=== PATIENT | male | born 1960 | race Caucasian/White ===

== ENCOUNTER 2023-12-06 21:23 | Emergency (ER) | payer MEDICARE, OTHER, SELFPAY ==
[2023-12-06 21:30] VITALS: BP 169/82; PULSE 88; RESP 20; TEMP 36.9; O2SAT 97; BMI 27.2
[2023-12-06 22:04] LABS: Add Manual Diff / Slide Review NO; Basophils Absolute Auto 0 /uL (0-100); Basophils Percent Auto 0.2 % (0-2); Eosinophils Absolute Auto 0 /uL (0-450); Hematocrit 39.2 % (41-53); Hemoglobin 13.4 g/dL (13.5-17.5); Lymphocytes Absolute Auto 800 /uL (1100-4500); Lymphocytes Percent Auto 12.2 % (25-40); Mean Corpuscular HGB Conc 34.1 % (30-36); Mean Corpuscular Hemoglobin 29.1 PG (26-34); Mean Corpuscular Volume 85.2 fL (80-100); Monocytes Absolute Auto 500 /uL (0-900); Neutrophils Absolute Auto 5200 /uL (1500-7000); Neutrophils Percent Auto 79.6 % (50-75); Platelet Count 249 X10^3/uL (150-400); Red Cell Distribution Width 14.3 % (11.6-14.8); White Blood Cell Count 6.5 X10^3/uL (4.5-11.0)
[2023-12-06 22:17] LABS: Lactate (Lactic Acid) 0.8 mmol/L (0.7-2.1)
[2023-12-06 22:18] LABS: Alanine Aminotransferase 18 IU/L (<50); Albumin 4.5 g/dL (3.5-5.0); Albumin Globulin Ratio 1.4 (1.0-2.8); Alkaline Phosphatase 97 U/L (38-126); Aspartate Aminotransferase 25 IU/L (17-59); BUN Creatinine Ratio 15.2 (6-22); Bilirubin Total 0.7 mg/dL (0.2-1.3); Blood Urea Nitrogen 12 mg/dL (9-20); Calcium 9.2 mg/dL (8.4-10.2); Carbon Dioxide 23 mmol/L (22-32); Chloride 102 mmol/L (98-107); Estimated Glomerular Filt Rate > 60 mL/min (>60); Globulin 3.2 g/dL (1.7-4.1); Glucose 109 mg/dL (80-110); HEMOLYSIS 16 (0-50); Potassium 4.1 mmol/L (3.4-5.1); Sodium 135 mmol/L (137-145); Total Protein 7.7 g/dL (6.3-8.2)
[2023-12-06 22:35] LABS: Procalcitonin 0.308 ng/mL (<0.5)
[2023-12-06 23:58] VITALS: BP 118/73; PULSE 77; PULSE 80; RESP 18; TEMP 36.8; O2SAT 99
[2023-12-07] VITALS: BP 121/66; PULSE 75; O2SAT 95
--- NOTE | 2023-12-07 00:11 | DI.CT.S_ITS ---
PROCEDURE: CT HEAD/BRAIN WO CON INDICATIONS: AMS, SEVERE MEMORY ISSUES TECHNIQUE: Noncontrast 4.5 mm thick angled axial sections acquired from the foramen magnum to the vertex, with coronal and sagittal reformats. For radiation dose reduction, the following was used: automated exposure control, adjustment of mA and/or kV according to patient size. COMPARISON: None. FINDINGS: Image quality: Diagnostic CSF spaces: Basal cisterns are patent. Lateral ventricles are symmetric. Volume: Vascular calcifications. Periventricular white matter disease is commonly seen with chronic microangiopathy. Volume loss is present. These findings are [id number] Brain: No intracranial hemorrhage. Ordaz-white differentiation is grossly maintained. Craniofacial structures: Mucosal thickening and mucous cysts seen in the paranasal sinuses. IMPRESSION: No acute intracranial pathology. If there is high concern for parenchymal pathology, consider further evaluation with MRI. Dictated by: Joey Huang M.D. on 12/07/2023 at 0:49 Approved by: Joey Huang M.D. on 12/07/2023 at 0:50
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
[2023-12-07 00:30] VITALS: BP 133/71; PULSE 70; O2SAT 97
[2023-12-07 00:40] LABS: Magnesium 1.6 mg/dL (1.6-2.3)
[2023-12-07 00:51] LABS: Ammonia (NH3) < 9 umol/L (9-30)
[2023-12-07 00:54] VITALS: BP 148/79; PULSE 78; O2SAT 96
[2023-12-07 01:00] VITALS: BP 135/83; PULSE 75; O2SAT 97
[2023-12-07 01:30] VITALS: BP 137/79; PULSE 76; O2SAT 95
[2023-12-07 01:54] LABS: Bacteria Urine None Seen; Culture Indicated Urine Cult Not Indicated; RBC Urine 0-1/HPF (0-5/HPF); Squamous Epithelial Cell Urine None Seen (0-5/HPF); Urine Volume 10mL (spun); WBC Urine None Seen (0-5/HPF)
[2023-12-07 02:00] VITALS: BP 131/78; PULSE 82; O2SAT 99
== END 2023-12-07 02:09 | disposition home or self-care (01) ==
PROVIDERS: Emergency Provider Emergency Medicine
DX: R41.82 Altered mental status, unspecified (principal); R50.9 Fever, unspecified; R05.9 Cough, unspecified
CPT/HCPCS: 36415; 70450; 71046; 80053; 81003; 81015; 82140; 83605; 83735; 84145; 85025; 99284